=== PATIENT | female | born 1970 | race Caucasian/White ===

== ENCOUNTER 2023-01-20 15:34 | Outpatient (AMB) | payer OTHER, SELFPAY ==
--- NOTE | 2023-01-20 15:38 | MHC.OFFWIV ---
Intake Vital Signs 01/20/23 15:40 Height 5 ft 5 in Weight 151 lb BMI 25.1 BP 120/74 Blood Pressure Location Lt brachial Position Sitting Pulse 78 Pulse Source Pulse Oximeter Temp 97.9 F Temp Source Temporal Artery Scan Pulse Oximetry (%) 98 Intake Visit Reasons: [employer]/lower back pain Intake Note: pt is here for c/o lower back pain Patient Tobacco Use Status: Current everyday Tobacco user Allergies No Known Allergies Allergy (Mild, Verified 01/20/23 15:41) NA Do you need a note to return to daycare/school/sports/work: Yes HPI HPI Comments History of Present Illness Details 52-year-old female presents for back pain. 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 PFSH Social History Patient Tobacco Use Status: Current everyday Tobacco user Review of Systems Musc Reports back pain Physical Exam Vital Signs: Last Vital Signs Temp 97.9 F 01/20/23 15:40 Pulse 78 01/20/23 15:40 BP 120/74 01/20/23 15:40 Pulse Ox 98 01/20/23 15:40 BMI result Body Mass Index 25.1 Const General: healthy appearing, comfortable, no acute distress and alert Orientation/consciousness: patient oriented x3 Limitations: no limitations HEENT Head: Yes normal to inspection Ears: hearing grossly normal bilaterally Resp Effort & Inspection: normal respiratory effort and able to speak in complete sentences Cardio Rate: regular rate Skin General skin exam: no rashes or lesions noted Neuro General: patient oriented x3 Extrem General: Yes normal to inspection Assessment & Plan Assessment & Plan (1) Lumbar strain: Code(s): S39.012A - Strain of muscle, fascia and tendon of lower back, initial encounter Qualifiers: Encounter type: initial encounter Qualified Code(s): S39.012A - Strain of muscle, fascia and tendon of lower back, initial encounter Plan: Symptoms consistent with lumbar strain with sciatica I will provide symptomatic treatment with Toradol, prednisone, tizanidine, and lidocaine patches. Discussed with patient that limited benefit in high risk to prescribe opiates for back pain Discharge instructions, follow up and treatment are discussed with patient in my usual fashion. Alternatives in treatment are also discussed. The patient will return for worsening symptoms or as needed. Advised that any labs/imaging ordered will be followed up on and contact made if further treatment needed. Counseled that patient's condition may require further evaluation and/or treatment. Symptoms of concern for worsening disorder discussed in detail in my customary manner. Patient does verbalize understanding of the plan, there are no apparent barriers to communication. The patient is given the opportunity to ask questions and have them answered to his/her satisfaction Medications: New ketorolac 10 mg PO TID PRN 15 tabs 0RF pain 5 days prednisone 40 mg (2 x 20 mg) PO DAILY 10 tabs 0RF 5 days tizanidine 4 mg PO BID PRN 10 caps 0RF muscle spasticity lidocaine 5% leave on most painful area for up to 12 hrs 1 patch topical DAILY 15 ea 0RF Coding Level of Care Code New Pt Level 3 (03934) Diagnoses Strain of lumbar region, initial encounter S39.012A Encounter type: initial encounter
[2023-01-20 15:40] VITALS: BP 120/74; PULSE 78; TEMP 36.6; O2SAT 98; BMI 25.1
== END 2023-01-20 16:11 | disposition home or self-care (01) ==
PROVIDERS: PCP Hospitalist; Visit Provider Physician Assistant
DX: S39.012A Strain of muscle, fascia and tendon of lower back, initial encounter (principal)
CPT/HCPCS: 99203

== ENCOUNTER 2023-09-06 08:38 | Outpatient (AMB) | payer OTHER, SELFPAY ==
--- NOTE | 2023-09-06 08:47 | MHC.OFFVIS ---
Vital Signs 09/06/23 08:57 Height 5 ft 5 in Weight 153 lb BMI 25.5 BP 118/67 Blood Pressure Location Lt brachial Position Sitting Pulse 98 Intake Visit Reasons: Colonoscopy consult Intake Note: Patient new consult for 1st pre colonoscopy screening Partient denies any GI issues. Disaster Recovery Consultant Required: No Accompanied by: Self / Same As Patient Allergies No Known Allergies Allergy (Mild, Verified 09/06/23 08:46) NA Medication List - Last Reconciled 09/06/23 by Twila Servin PA-C aspirin (Adult Aspirin Regimen) 81 mg PO DAILY duloxetine 120 mg PO DAILY ketorolac 10 mg PO TID PRN 5 days lidocaine 5% 1 patch topical DAILY methylphenidate HCl ER 27 mg PO QAM metoprolol succinate ER 25 mg PO DAILY mirtazapine 7.5 mg PO BEDTIME tizanidine 4 mg PO BID PRN varenicline mg PO HPI Comments Details: 52-year-old female referred for index screening colonoscopy Bowels normal Appetite is good. No fam hx GI cancers- [place] 7 years ago- f/u Cardiology- doing well-seen > 1 month ago-no anti coags Bilat- carpal a couple weeks ago No N/V/D/ abdominal pain-fever or chills. PFSH Surgical History (Updated 09/06/23 @ 09:07 by Ivon Stover) Hx of tubal ligation History of heart artery stent Hx of carpal tunnel repair Hx of cholecystectomy Family History (Updated 09/06/23 @ 09:04 by Ivon Stover) Mother COPD (chronic obstructive pulmonary disease) Heart disease Father Heart disease Paternal Grandmother Breast cancer Ovarian cancer Heart disease Maternal Grandmother Heart disease Breast cancer Ovarian cancer Social History Household Members: Family Alcohol intake: former Patient Tobacco Use Status: Current everyday Tobacco user Use of substances other than those prescribed or required for medical reasons: No Review of Systems Const All systems reviewed & are unremarkable except as noted in HPI and below Card Denies chest pain and Denies dyspnea Resp Denies dyspnea GI Denies abdominal pain, Denies change in bowel habits, Denies nausea and Denies vomiting Physical Exam Const General: cooperative, healthy appearing, comfortable and no acute distress Orientation/consciousness: patient oriented x3 Limitations: no limitations Eyes Sclerae: sclerae normal Resp Effort & Inspection: normal respiratory effort and able to speak in complete sentences Auscultation: clear to auscultation bilaterally, no rales, no rhonchi and no wheezes Cardio Rate: regular rate (JUL 96) Rhythm: regular rhythm Heart sounds: S1 normal heart sound present and S2 normal heart sound present GI Palpation (GI): Soft to palpation and nontender Auscultation: normal bowel sounds Skin General skin exam: no rashes or lesions noted Neuro General: patient oriented x3 Extrem General: Yes full ROM Psych Appearance: grossly normal and well kempt Mental Status: mental status grossly normal Speech and movement: Normal speech and movement present and Clear speech present Affect: normal affect Attitude: cooperative Thought process: Normal thought process present Thought content: Normal thought content present Insight: Good insight present (Psych) Judgement: Good judgement present (Psych) Assessment & Plan Assessment & Plan (1) Encounter for screening colonoscopy: Comment: disc procedure, rare risk, need for escort- prep Code(s): Z12.11 - Encounter for screening for malignant neoplasm of colon Category: Medical Plan index screening Orders: Orders Colonoscopy - GI Use Only Today Z12.11 - Encounter for screening for malignant neoplasm of colon Complete Blood Count Auto Diff Today Z12.11 - Encounter for screening for malignant neoplasm of colon Comprehensive Met. Panel Today Z12.11 - Encounter for screening for malignant neoplasm of colon Thyroid Stimulating Hormone Today Z12.11 - Encounter for screening for malignant neoplasm of colon Medications: New polyethylene glycol 3350 (Miralax) Take as directed by mouth the day before your procedure. 238 grams PO ONCE 1 day PRN 238 grams 0RF laxative effect bisacodyl (Dulcolax (bisacodyl)) Day before procedure @ 12 noon Take 4 tablets by mouth followed by large glass of water 20 mg (4 x 5 mg) PO ONCE 1 day PRN 4 tabs 0RF colonoscopy prep Z12.11 - Encounter for screening for malignant neoplasm of colon Patient Instructions: index screening MG prep, reviewed , lit given call with concerns Coding Level of Care Code New Pt Level 3 (85321) Diagnoses Encounter for screening colonoscopy Z12.11 Time Spent (min) 30
[2023-09-06 08:57] VITALS: BP 118/67; PULSE 98; BMI 25.5
== END 2023-09-06 09:21 | disposition home or self-care (01) ==
PROVIDERS: PCP Hospitalist; Visit Provider Physician Assistant
DX: Z12.11 Encounter for screening for malignant neoplasm of colon (principal); Z01.818 Encounter for other preprocedural examination
CPT/HCPCS: 99203

== ENCOUNTER 2023-09-06 08:38 | Outpatient (REF) | payer OTHER, SELFPAY ==
[2023-09-06 09:43] LABS: MANUAL DIFF FLAG NO
[2023-09-06 10:22] LABS: Basophils Absolute Auto 0.1 X10*3/uL (0.0-0.2); Basophils Percent Auto 0.7 % (0-2); Eosinophils Absolute Auto 0.1 X10*3/uL (0.0-0.4); Hematocrit 40.3 % (37.0-47.0); Hemoglobin 13.3 g/dl (12.0-16.0); Imm Gran Abs Auto 0.02 X10*3/uL (0.00-0.03); Imm Gran Pct Auto 0.3 % (0.0-0.4); Lymphocytes Absolute Auto 1.8 X10*3/uL (1.2-4.9); Lymphocytes Percent Auto 24.8 % (20-40); Mean Corpuscular Hemoglobin 29.6 pg (27.0-33.0); Mean Corpuscular Volume 89.8 fL (80.0-98.0); Mean Platelet Volume 9.4 fL (9.4-12.3); Monocytes Absolute Auto 0.7 X10*3/uL (0.1-1.2); Monocytes Percent Auto 9.4 % (2-11); Neutrophils Absolute Auto 4.5 x10*3/uL (2.0-8.3); Neutrophils Percent Auto 62.8 % (45-73); Platelet Count 269 X10*3/uL (160-400); Red Blood Count 4.49 X10*6/uL (4.20-5.50); Red Cell Distribution Width 14.1 % (11.0-16.0); White Blood Count 7.1 X10*3/uL (4.8-10.8)
[2023-09-06 11:16] LABS: Alanine Aminotransferase 19 U/L (0-31); Albumin Level 4.1 g/dL (3.5-5.0); Alkaline Phosphatase 88 U/L (39-117); Anion Gap 9 (12-20); Aspartate Amino Transferase 23 U/L (5-31); Bilirubin Total 0.3 mg/dL (0.0-1.0); Blood Urea Nitrogen 13 mg/dL (9-16); Calcium 9.5 mg/dL (8.4-10.2); Carbon Dioxide 28 mmol/L (22-29); Chloride 108 mmol/L (96-108); Estimated Glomerular Filt Rate > 60; Glucose Random 90 mg/dL (60-115); Potassium 4.2 mmol/L (3.3-5.1); Sodium 141 mmol/L (135-145); Total Protein 6.9 g/dL (6.5-8.0)
[2023-09-06 11:32] LABS: Thyroid Stimulating Hormone 0.85 uIU/mL (0.32-4.0)
== END 2023-09-06 08:39 | disposition home or self-care (01) ==
LOC: HO.LAB 08:38
PROVIDERS: PCP Nurse Practitioner Family; Visit Provider Physician Assistant
DX: Z01.818 Encounter for other preprocedural examination (principal)
CPT/HCPCS: 36415; 80053; 84443; 85025